=== PATIENT | male | born 1980 | race Two or more races ===

== ENCOUNTER 2018-03-14 05:32 | Day surgery (SDC) | payer OTHER ==
[~2018-03-14 05:32] MED LIST: CEFAZOLIN SODIUM/DEXTROSE,ISO 50 ML IV ONE
[2018-03-14] MEDS ORDERED: LIDOCAINE HCL/PF 1% 30 ML SDV ONE (06:53)
[2018-03-14] MEDS ORDERED: ANESTHESIA TRAY IN PYXIS 1 EA TRAY MC ONE (06:53)
[2018-03-14] MEDS ORDERED: MIDAZOLAM HCL 2 MG/2ML VIAL ONE (07:10)
[2018-03-14] MEDS ORDERED: FENTANYL PF 100MCG/2ML AMPUL ONE (07:11)
[2018-03-14] MEDS ORDERED: MORPHINE SULFATE/PF 10 MG/10ML (1MG/ML) AMPUL ONE (08:06)
[2018-03-14] MEDS ORDERED: BUPIVACAINE 0.5 % PF 150 MG/30 ML VIAL ONE (08:06)
[2018-03-14] MEDS ORDERED: HYDROCODONE/APAP 5/325MG 1 EACH TABLET ONE (09:32)
== END 2018-03-14 09:58 | disposition home or self-care (01) ==
LOC: DS 05:32
PROVIDERS: ATTEND Student in an Organized Health Care Education/Training Program
DX: S83.232A Complex tear of medial meniscus, current injury, left knee, initial encounter (principal); M65.9 Synovitis and tenosynovitis, unspecified; X58.XXXA Exposure to other specified factors, initial encounter; Y93.89 Activity, other specified; Y92.89 Other specified places as the place of occurrence of the external cause; Y99.8 Other external cause status
CPT/HCPCS: 29876; 29881; 88304; 88311; A4217; A6253; J0690 ×2; J2250; J2274; J2405; J2704; J3010; J3490; J7120; Z7610